=== PATIENT | male | born 1960 | race Caucasian/White ===

== ENCOUNTER → 2020-03-16 11:37 | Outpatient (BNVA) | payer OTHER, SELFPAY | PROVIDERS: PCP Physician Assistant Medical; Referring Provider Physician Assistant Medical; Visit Provider Urology | DX: Z76.89 Persons encountering health services in other specified circumstances (principal) ==

== ENCOUNTER 2020-04-03 06:51 | Day surgery (SDC) | payer OTHER, SELFPAY ==
[2020-03-29 08:56] VITALS: BMI 22.7
[2020-04-03 07:20] VITALS: BP 129/78; PULSE 71; RESP 18; TEMP 35.9; O2SAT 99
--- NOTE | 2020-04-03 07:58 | HO.ANESPROP2 ---
FORM[facility]LY [facility] Past Medical History Medical History PONV (postoperative nausea and vomiting) Surgical History Surgical History H/O colonoscopy History of back surgery History of knee surgery History of rotator cuff surgery Social History Social History Alcohol intake: current Alcohol intake frequency: a few times a week Smoking Status: Never smoker Use of substances other than those prescribed or required for medical reasons: No Advance Directives: No Advance Directives Information Provided: No Advance Directives on File: No Meds Allergies Allergy/AdvReac Type Severity Reaction Status Date / Time morphine AdvReac Mild Nausea and Verified 03/29/20 08:55 Vomiting Exam Exam Date and Time: April 03, 2020 0758 Height,Weight and Vital Signs: Height 5 ft 7 in Weight 65.771 kg Last Vital Signs Temp 96.7 F L 04/03/20 07:20 Pulse 71 04/03/20 07:20 Resp 18 04/03/20 07:20 BP 129/78 04/03/20 07:20 Pulse Ox 99 04/03/20 07:20 Airway Mallampati Class: I TM Dist: >3cm Neck ROM: Full Assessment and Plan Assessment Anesthesia Assessment: Anesthesia Plan Discussed and Chart Reviewed Final Anesthetic Review NPO: Yes ASA Class: II Final Preanesthetic Review: No Changes in Pt Med Stat, Meds/Allgs Chart Reviewed, Consent Obtained/Reviewed and Anes Risks/Benef Reviewed Patient Risk: Low Procedure Risk: Low Assessment/Block/Sedation in SS: Assess/Block/Sedation- Anesthetic Plan Anesthetic Plan: GA Disposition: Standard PACU
--- NOTE | 2020-04-03 08:42 | MHC.SHP ---
Pre-Procedural Eval Section B Chief Complaint: Spermatocele of Epididymis Details of Present Illness: left spermatocele Relevant Family History (Specify if Yes): No Relevant Social History: None Present Medications: see Short Stay Collaborative assessment Medical History: No relevant PMH History of Previous Operations: No relevant previous surgery Allergies: Allergies Allergy/AdvReac Type Severity Reaction Status Date / Time morphine AdvReac Mild Nausea and Verified 03/29/20 08:55 Vomiting Review of Systems Sugical H&P ROS: Negative: Constitution, Cardiovascular, Respiratory, Neurological, Psychiatric, Hem-Onc, Allergic/Immunologic, Gastrointestinal, Genitourinary, Musculoskeletal, Integumentary, Endocrine and Eyes/Ears/Nose/Throat Exam Surgical H&P Exam: Normal: HEENT, Normal: Heart, Normal: Lungs, Normal: Extremities, Normal: Abdomen, Normal: Skin and Normal: Neurological Plan Diagnosis/Plan: Unchanged Patient has been examined and remains a candidate for the planned procedure
[2020-04-03 09:30] VITALS: BP 134/90; PULSE 65; RESP 16; TEMP 36.8; O2SAT 98
[2020-04-03 09:34] VITALS: BP 117/83; PULSE 63; RESP 18; O2SAT 100
[2020-04-03 09:40] VITALS: BP 119/74; PULSE 63; RESP 18; O2SAT 98
[2020-04-03 09:45] VITALS: BP 116/76; PULSE 65; RESP 18; O2SAT 98
[2020-04-03 10:00] VITALS: BP 120/78; PULSE 64; RESP 18; O2SAT 100
--- NOTE | 2020-04-03 11:19 | HO.POSTANES ---
Post Anesthesia Evaluation Post Anesthesia Evaluation Vital Signs: Vital Signs Temp Pulse Resp BP Pulse Ox 04/03/20 10:00 64 18 120/78 100 04/03/20 09:45 65 18 116/76 98 04/03/20 09:40 63 18 119/74 98 04/03/20 09:34 63 18 117/83 100 04/03/20 09:30 98.2 F 65 16 134/90 H 98 04/03/20 07:20 96.7 F L 71 18 129/78 99 Anesthesia: General Mental Status: Awake Pain Control: Satisfactory Nausea/Vomiting: None Hydration: Adequate Anesthesia-Related Issues: No Anes. Related Issues
--- NOTE | 2020-06-22 14:32 | PM.OP ---
Brief Operative Note Date of Service: 04/03/20 Pre-op diagnosis: Left spermatocele Post-op diagnosis: same Procedure: Left spermatocele ectomy Surgeon: Vishnu Cardona MD Anesthesia: GLMA Estimated blood loss (mL): 0 Pathology: other (left spermatocele) Condition: stable Disposition: same day
--- NOTE | 2020-06-22 14:33 | W.PM.OPN ---
Operative Note Operative Note Date of Service: 04/03/20 Narrative: PreOperative Diagnosis: Left spermatocele Post Operative Diagnosis: Left spermatocele Procedure: Left spermatocelectomy Surgeon: Dr Vishnu Cardona Anesthesia: General Indications for procedure: Left spermatocelectomy. Increasing pain and discomfort. Understands risks and benefits including loss of testicle Procedure: After informed consent was verified the patient was brought to the operating room and placed in a supine position. anesthesia was administered per protocol. Patient was prepped and draped in sterile fashion. Safety pause time-out was performed. Site of surgery confirmed. The left testicle is elevated. A 2 in transverse incision was made through the skin and taken down to the level of the tunica. The tunica was opened and the testicle delivered. The spermatocele seen in the epididymal tissue of the left side. This spermatocele was slowly dissected away from the testicle with care taken to have it maintained in its structure. Any little feeding areas were cauterized. The spermatocele was completely removed and will be sent for pathology The tunica albuginea was closed using a running Vicryl suture. The skin was then closed using interrupted chromic sutures He tolerated the procedure well was extubated in operating transferred in stable condition recovery area Pathology: Left spermatocele Drains: None
== END 2020-04-03 11:04 | disposition home or self-care (01) ==
PROVIDERS: PCP Physician Assistant Medical; Visit Provider Urology
PROC: (CPT 54840; principal; 2020-04-03 08:50)
DX: N43.40 Spermatocele of epididymis, unspecified (principal); Z88.8 Allergy status to other drugs, medicaments and biological substances
CPT/HCPCS: 54840; 88304; J0690; J1100; J2405; J3010

== ENCOUNTER → 2020-04-21 14:47 | Outpatient (BNVA) | payer OTHER, SELFPAY | PROVIDERS: PCP Physician Assistant Medical; Visit Provider Urology | DX: Z76.89 Persons encountering health services in other specified circumstances (principal) ==